=== PATIENT | female | born 1935 | race Asian ===

== ENCOUNTER 2016-05-09 19:21 | Inpatient (IN) | payer MEDICARE, OTHER ==
[~2016-05-09] VITALS: Ht 157.5 cm; Wt 69.6 kg
[~2016-05-09 19:21] MED LIST: ACAR50TA PO; ACET-66 PO; CLOP75 PO; COLC0.6T69; LOSA100T29 PO; MEMA5 PO; METO-323 PO; MULT-60 PO; PRAV40TA3 PO; RANI150T7 PO; RISE35TA8 PO; SAXA2.5T PO
[2016-05-09] MEDS ORDERED: SITA1TAB6 PO (19:29)
[2016-05-09] MEDS ORDERED: DONE10TA PO (19:29)
[2016-05-09] MEDS ORDERED: LEVO1POW MC (19:29)
[2016-05-09] MEDS ORDERED: GLIM2 PO (19:29)
[2016-05-09] MEDS ORDERED: MEMA10TA11 PO (19:30)
[2016-05-09] MEDS ORDERED: ROSU10 PO (19:30)
[2016-05-09 19:32] LABS: GLUCOSE,POINT OF CARE 143 MG/DL (70-110)
[2016-05-09 19:52] LABS: BASOPHILS # (AUTO) 0.01 K/uL (0.00-0.20); BASOPHILS % (AUTO) 0.3 % (0.0-2.0); EOSINOPHILS % (AUTO) 0.09 % (1.0-6.0); HEMATOCRIT 44.4 % (36-46); HEMOGLOBIN 14.7 g/dL (12.0-16.0); LYMPHOCYTES # (AUTO) 1.3 K/uL (1.0-4.8); LYMPHOCYTES % (AUTO) 28.8 % (22.0-44.0); MEAN CORPUSCULAR HEMOGLOBIN 29.9 pg (26.0-34.0); MEAN CORPUSCULAR HGB CONC 33.2 G/dL (31.0-37.0); MEAN CORPUSCULAR VOLUME 90 fL (80-100); MONOCYTES # (AUTO) 0.7 K/uL (0.1-1.0); MONOCYTES % (AUTO) 15.6 % (2.0-9.0); NEUTROPHILS # (AUTO) 2.6 K/uL (1.8-7.7); NEUTROPHILS % (AUTO) 55.2 % (40.0-70.0); PLATELET COUNT (AUTO) 118 K/uL (150-450); RED BLOOD CELL COUNT(AUTO) 4.93 MIL/uL (4.00-5.20); RED CELL DISTRIBUTION WIDTH 13.1 % (11.5-14.5); WHITE BLOOD COUNT (AUTO) 4.7 K/uL (4.5-11.0)
[2016-05-09 20:00] LABS: APPEARANCE,URINE CLOUDY (CLEAR); GLUCOSE, URINE (UA) NEGATIVE (NEGATIVE); KETONES,URINE 15 mg/dL (NEGATIVE); LEUKOCYTE ESTERASE ,URINE TRACE (NEGATIVE); OCCULT BLOOD,URINE MODERATE (NEGATIVE); PH,URINE 5.5 (5.0-8.0); PROTEIN,URINE SEE CONFIRM (NEGATIVE)
[2016-05-09 20:01] LABS: ANION GAP 12 mmol/L (8-16); CALCIUM, TOTAL 8.6 mg/dL (8.8-10.5); CARBON DIOXIDE 24 mmol/L (22-29); CHLORIDE 101 mmol/L (98-107); CREATININE 1.31 mg/dL (0.60-1.30); GLOMERULAR FILTR. RATE CALC 39 mL/min (>60); POTASSIUM 3.9 mmol/L (3.5-5.1); SODIUM SERUM 137 mmol/L (136-145); UREA NITROGEN, BLOOD 14 mg/dL (7-18)
[2016-05-09 20:01] LABS: ADD UA MICROSCOPIC YES
[2016-05-09 20:07] LABS: ALANINE AMINOTRANSFERASE 37 U/L (12-78); ALBUMIN 3.9 g/dL (3.4-5.0); ASPARTATE AMINOTRANSFERASE 50 U/L (15-37); BILIRUBIN,TOTAL 0.6 mg/dL (0.1-1.0); TOTAL PROTEIN, SERUM 8.1 g/dL (6.4-8.2)
[2016-05-09 20:11] LABS: RBC,URINE None Seen /HPF (0-2); SULFOSALICYLIC ACID,URINE 3+ (Negative)
[2016-05-09] MEDS ORDERED: LEVO5TAB13 PO (20:13)
[2016-05-09] MEDS ORDERED: MEMA28CA PO (20:13)
[2016-05-09] MEDS ORDERED: METO-325 PO (20:13)
[2016-05-09] MEDS ORDERED: CefTRIAXone 1 GM/DEXTROSE 50 ML IV ONE (20:15)
[2016-05-09] MEDS ORDERED: SODIUM CHLORIDE 0.9% 1,000 ML IV ONE (20:15)
[2016-05-09] MEDS ORDERED: ACETAMINOPHEN 500 MG TABLET PO ONE (20:15)
[2016-05-09 20:40] LABS: LACTIC ACID 2.2 mmol/L (0.4-2.0)
[2016-05-09 20:45] LABS: B-TYPE NATRIURETIC PEPTIDE 173 pg/mL (0-100)
[2016-05-09 21:39] LABS: INFLUENZA TYPE B NEGATIVE FOR TYPE B (NEGATIVE)
[2016-05-09 21:45] LABS: REFLEX LACTIC ACID? YES YES
[2016-05-09] MEDS ORDERED: HEPARIN SODIUM,PORCINE 5,000 UNITS/ML VIAL SQ ONE (22:00)
[2016-05-09] MEDS ORDERED: OSELTAMIVIR PHOSPHATE 75 MG CAPSULE PO ONE (22:00)
[2016-05-09] MEDS ORDERED: IPRATROPIUM BROMIDE 0.5 MG/2.5 ML NEB SOLUTION NEB PRN (22:15)
[2016-05-09] MEDS ORDERED: ONDANSETRON HCL 4 MG/2 ML VIAL IVP PRN (22:15)
[2016-05-09] MEDS ORDERED: ALBUTEROL SULFATE 2.5 MG/0.5 ML NEB SOLUTION NEB PRN (22:15)
[2016-05-09] MEDS ORDERED: ACETAMINOPHEN 325 MG TABLET PO PRN (22:15)
[2016-05-09] MEDS ORDERED: 0.9% SODIUM CHLORIDE 10 ML SYRINGE IVP PRN (22:15)
[2016-05-09 22:46] VITALS: BP 123/63
[2016-05-10] MEDS ORDERED: INFLUENZA VIRUS VACCINE QVS 2016-17 (3YR+)/PF 60 MCG/0.5 ML SYRINGE IM ONE (01:15)
[2016-05-10] MEDS ORDERED: PNEUMOCOCCAL VACCINE POLYVALENT 0.5 ML VIAL [PPSV23] IM ONE (01:15)
[2016-05-10 06:07] VITALS: BP 147/68
[2016-05-10 07:50] VITALS: BP 132/66
[2016-05-10] MEDS ORDERED: ALBUTEROL SULFATE 2.5 MG/0.5 ML NEB SOLUTION NEB PRN (08:45)
[2016-05-10] MEDS ORDERED: MISC MED-CONVERTED FROM AMBULATORY (Sitagliptin Phos/Metformin HCl (Janumet 50-1,000 mg Ta PO SCH (08:45)
[2016-05-10] MEDS ORDERED: HYDROCODONE/ACETAMINOPHEN 5-325 MG TABLET PO PRN (08:45)
[2016-05-10] MEDS ORDERED: ONDANSETRON HCL 4 MG/2 ML VIAL IVP PRN (08:45)
[2016-05-10] MEDS ORDERED: IPRATROPIUM BROMIDE 0.5 MG/2.5 ML NEB SOLUTION NEB PRN (08:45)
[2016-05-10] MEDS ORDERED: ZOLPIDEM TARTRATE 5 MG TABLET PO PRN (08:45)
[2016-05-10] MEDS ORDERED: ACETAMINOPHEN 325 MG TABLET PO PRN (08:45)
[2016-05-10] MEDS ORDERED: 0.9% SODIUM CHLORIDE 10 ML SYRINGE IVP PRN ×2 (08:45)
[2016-05-10] MEDS ORDERED: [UNRECOGNIZED DRUG - OTHER] PO SCH (09:00)
[2016-05-10] MEDS ORDERED: DEXTROSE 50%-WATER 25 GM/50 ML SYRINGE IVP PRN (09:00)
[2016-05-10] MEDS: RANITIDINE HCL 150 MG TABLET PO SCH ×2 (09:19→20:02)
[2016-05-10] MEDS: OSELTAMIVIR PHOSPHATE 30 MG CAPSULE PO SCH ×2 (09:19→20:02)
[2016-05-10] MEDS: PANTOPRAZOLE SODIUM 40 MG DR TABLET PO SCH (09:19)
[2016-05-10] MEDS: METOPROLOL SUCCINATE 50 MG ER TABLET PO SCH (09:19)
[2016-05-10] MEDS: DOCUSATE SODIUM 250 MG CAPSULE PO SCH ×3 (09:19→20:02)
[2016-05-10] MEDS: HEPARIN SODIUM,PORCINE 5,000 UNITS/ML VIAL SQ SCH ×2 (09:21→20:02)
[2016-05-10 12:03] VITALS: BP 128/64
[2016-05-10 16:03] VITALS: BP 137/69
[2016-05-10 19:58] VITALS: BP 135/71
[2016-05-10] MEDS: ATORVASTATIN CALCIUM 20 MG TABLET PO SCH (20:02)
[2016-05-10] MEDS: CefTRIAXone 1 GM/DEXTROSE 50 ML IV SCH (20:02)
[2016-05-10] MEDS: INSULIN ASPART 100 UNITS/ML SQ PRN (20:23)
[2016-05-10 23:47] VITALS: BP 128/65
[2016-05-11 04:58] VITALS: BP 128/63
[2016-05-11] MEDS: PANTOPRAZOLE SODIUM 40 MG DR TABLET PO SCH (05:44)
[2016-05-11 07:22] VITALS: BP 143/72
[2016-05-11 09:04] LABS: BASOPHILS % (AUTO) 0.8 % (0.0-2.0); EOSINOPHILS % (AUTO) 0.8 % (1.0-6.0); HEMATOCRIT 41.7 % (36-46); HEMOGLOBIN 13.7 g/dL (12.0-16.0); LYMPHOCYTES # (AUTO) 1.8 K/uL (1.0-4.8); LYMPHOCYTES % (AUTO) 52.6 % (22.0-44.0); MEAN CORPUSCULAR HEMOGLOBIN 29.9 pg (26.0-34.0); MEAN CORPUSCULAR HGB CONC 32.8 G/dL (31.0-37.0); MEAN CORPUSCULAR VOLUME 91 fL (80-100); MONOCYTES # (AUTO) 0.3 K/uL (0.1-1.0); MONOCYTES % (AUTO) 9.1 % (2.0-9.0); NEUTROPHILS # (AUTO) 1.2 K/uL (1.8-7.7); NEUTROPHILS % (AUTO) 36.7 % (40.0-70.0); PLATELET COUNT (AUTO) 108 K/uL (150-450); RED BLOOD CELL COUNT(AUTO) 4.58 MIL/uL (4.00-5.20); RED CELL DISTRIBUTION WIDTH 13.3 % (11.5-14.5); WHITE BLOOD COUNT (AUTO) 3.3 K/uL (4.5-11.0)
[2016-05-11 09:16] LABS: PROTHROMBIN TIME 10.7 SEC (9.4-11.6)
[2016-05-11 09:32] LABS: CHOL/HDL RATIO 2.3 (3.9-5.7); THYROID STIMULATING HORMONE 0.57 uIU/mL (0.36-3.74)
[2016-05-11 09:43] LABS: HEMOGLOBIN A1C 6.4 % (4.5-6.2)
[2016-05-11] MEDS: DOCUSATE SODIUM 250 MG CAPSULE PO SCH ×3 (10:01→20:24)
[2016-05-11] MEDS: HEPARIN SODIUM,PORCINE 5,000 UNITS/ML VIAL SQ SCH ×2 (10:01→20:24)
[2016-05-11] MEDS: OSELTAMIVIR PHOSPHATE 30 MG CAPSULE PO SCH ×2 (10:01→20:24)
[2016-05-11] MEDS: RANITIDINE HCL 150 MG TABLET PO SCH ×2 (10:01→20:24)
[2016-05-11] MEDS: METOPROLOL SUCCINATE 50 MG ER TABLET PO SCH (10:01)
[2016-05-11 11:23] VITALS: BP 127/68
[2016-05-11 11:28] LABS: GLUCOSE COMMENT 1 Received Meds; GLUCOSE,POINT OF CARE 125 MG/DL (70-110)
[2016-05-11 11:31] LABS: GLUCOSE COMMENT 1 Received Meds; GLUCOSE,POINT OF CARE 177 MG/DL (70-110)
[2016-05-11] MEDS: INSULIN ASPART 100 UNITS/ML SQ PRN ×2 (12:04→20:44)
[2016-05-11 16:01] VITALS: BP 133/67
[2016-05-11 19:57] VITALS: BP 118/54
[2016-05-11] MEDS: CefTRIAXone 1 GM/DEXTROSE 50 ML IV SCH (20:24)
[2016-05-11] MEDS: ATORVASTATIN CALCIUM 20 MG TABLET PO SCH (20:24)
[2016-05-11 23:52] VITALS: BP 139/67
[2016-05-12 05:16] VITALS: BP 138/71
[2016-05-12] MEDS: PANTOPRAZOLE SODIUM 40 MG DR TABLET PO SCH (05:43)
[2016-05-12 08:07] VITALS: BP 116/62
[2016-05-12] MEDS: METOPROLOL SUCCINATE 50 MG ER TABLET PO SCH (08:47)
[2016-05-12] MEDS: HEPARIN SODIUM,PORCINE 5,000 UNITS/ML VIAL SQ SCH (08:47)
[2016-05-12] MEDS: OSELTAMIVIR PHOSPHATE 30 MG CAPSULE PO SCH (08:47)
[2016-05-12] MEDS: DOCUSATE SODIUM 250 MG CAPSULE PO SCH (08:47)
[2016-05-12] MEDS: RANITIDINE HCL 150 MG TABLET PO SCH (08:47)
[2016-05-12] MEDS: CefTRIAXone 1 GM/DEXTROSE 50 ML IV SCH (09:36)
[2016-05-12 09:46] LABS: ALBUMIN 3.2 g/dL (3.4-5.0); BILIRUBIN,TOTAL 0.3 mg/dL (0.1-1.0); CALCIUM, TOTAL 8.1 mg/dL (8.8-10.5); CREATININE 1.13 mg/dL (0.60-1.30); POTASSIUM 3.8 mmol/L (3.5-5.1); TOTAL PROTEIN, SERUM 7.1 g/dL (6.4-8.2)
[2016-05-12] MEDS ORDERED: SULF1TAB42 PO ×2 (10:19→13:33)
[2016-05-12 10:23] LABS: MAGNESIUM 1.8 mg/dL (1.80-2.40)
[2016-05-12] MEDS ORDERED: SAXA2.5T PO (10:32)
[2016-05-12] MEDS ORDERED: OSEL30CA PO (10:32)
[2016-05-12 11:47] LABS: GLUCOSE,POINT OF CARE 138 MG/DL (70-110)
[2016-05-12] MEDS: INSULIN ASPART 100 UNITS/ML SQ PRN (11:50)
[2016-05-12 11:52] LABS: GLUCOSE COMMENT 1 Received Meds; GLUCOSE,POINT OF CARE 216 MG/DL (70-110)
[2016-05-12 12:07] LABS: GLUCOSE COMMENT 1 Received Meds; GLUCOSE,POINT OF CARE 213 MG/DL (70-110)
[2016-05-12 12:07] LABS: GLUCOSE,POINT OF CARE 124 MG/DL (70-110)
[2016-05-12 12:46] VITALS: BP 112/63
[2016-05-13 14:02] LABS: GLUCOSE,POINT OF CARE 146 MG/DL (70-110)
== END 2016-05-12 14:05 | disposition home or self-care (01) | DRG 871 ==
LOC: EMS 19:23 → 5S 22:02
PROVIDERS: ADMIT Internal Medicine; ATTEND Internal Medicine
DX: A41.9 Sepsis, unspecified organism (principal); K85.90 Acute pancreatitis without necrosis or infection, unspecified; N17.9 Acute kidney failure, unspecified; N39.0 Urinary tract infection, site not specified; I50.30 Unspecified diastolic (congestive) heart failure; J10.1 Influenza due to other identified influenza virus with other respiratory manifestations; E78.5 Hyperlipidemia, unspecified; B96.89 Other specified bacterial agents as the cause of diseases classified elsewhere; E11.65 Type 2 diabetes mellitus with hyperglycemia; E78.00 Pure hypercholesterolemia, unspecified; F03.90 Unspecified dementia, unspecified severity, without behavioral disturbance, psychotic disturbance, mood disturbance, and anxiety; I25.10 Atherosclerotic heart disease of native coronary artery without angina pectoris; M10.9 Gout, unspecified; M81.0 Age-related osteoporosis without current pathological fracture; R65.20 Severe sepsis without septic shock; I11.0 Hypertensive heart disease with heart failure; E86.0 Dehydration; D69.6 Thrombocytopenia, unspecified; B96.20 Unspecified Escherichia coli [E. coli] as the cause of diseases classified elsewhere; K44.9 Diaphragmatic hernia without obstruction or gangrene; Z79.899 Other long term (current) drug therapy; Z87.440 Personal history of urinary (tract) infections; Z98.890 Other specified postprocedural states
CPT/HCPCS: 51702; 82962; 83036; 83605; 83735; 84443; 87040; 87086; 87804; 90471; 93005; 96365; 96372; 99285; J0696; J1644; J7030